=== PATIENT | female | born 1990 | race Hispanic/Latino ===

== ENCOUNTER 2021-12-12 16:26 | Day surgery (SDC) | payer SELFPAY ==
[2021-12-12] MEDS ORDERED: hydrALAZINE 20 MG/ML VIAL SLOW IVP PRN ×2 (16:33)
[2021-12-12 17:08] VITALS: BMI 30.3
[2021-12-12 17:14] LABS: Hemoglobin 10.4 g/dL (12.0-15.5); Mean Corpuscular HGB CONC 32.9 g/dL (32.0-36.0); Mean Corpuscular Hemoglobin 29.7 pg (27.0-33.0); Mean Corpuscular Volume 90.3 fl (81.6-98.3); Mean Platelet Volume 10.1 fl (7.4-10.4); Platelet Count 334 10x3/uL (150-450); RBC Distribution Width 13.1 % (11.5-14.5); White Blood Cell (WBC) Count 15.1 10x3/uL (3.5-10.5)
[2021-12-12 17:50] LABS: HIV (1/2) Antibody/Antigen Non-Reactive (NonReactive); HIV 1/2 INDEX 0.07 S/CO (<1.00); Hep B Surf Ag Non-Reactive S/CO (NonReactive); Syphilis Antibody Nonreactive (Nonreactive); Syphilis Antibody Index 0.03 S/CO (<1.00 Non-Reactive)
[2021-12-12 18:15] LABS: HBSAg Index 0.19 S/CO (0-0.99)
== END 2021-12-12 20:05 | disposition home or self-care (01) ==
LOC: CSHLD/OP 16:26
PROVIDERS: ATTEND Obstetrics & Gynecology
DX: O32.1XX2 Maternal care for breech presentation, fetus 2 (principal); O30.042 Twin pregnancy, dichorionic/diamniotic, second trimester; O09.32 Supervision of pregnancy with insufficient antenatal care, second trimester; O34.219 Maternal care for unspecified type scar from previous cesarean delivery; Z3A.26 26 weeks gestation of pregnancy
CPT/HCPCS: 76810; 85027; 86762; 86780; 86850; 86900; 86901; 87340; 87389; 99284

== ENCOUNTER 2022-02-13 10:55 | Day surgery (SDC) | payer SELFPAY | END 2022-02-13 19:10 | disposition home or self-care (01) | LOC: CSHLD/OP 10:55 | PROVIDERS: ATTEND Family Medicine | DX: O36.8130 Decreased fetal movements, third trimester, not applicable or unspecified (principal); O30.003 Twin pregnancy, unspecified number of placenta and unspecified number of amniotic sacs, third trimester; O09.33 Supervision of pregnancy with insufficient antenatal care, third trimester; Z3A.36 36 weeks gestation of pregnancy | CPT/HCPCS: 59025; 76810; 76815; 76819; 99282 ==

== ENCOUNTER 2022-02-17 09:24 | Day surgery (SDC) | payer OTHER | END 2022-02-17 13:25 | disposition home or self-care (01) | LOC: CSHLD/OP 09:24 | PROVIDERS: ATTEND Family Medicine | DX: O30.043 Twin pregnancy, dichorionic/diamniotic, third trimester (principal); O31.8X30 Other complications specific to multiple gestation, third trimester, not applicable or unspecified; Z3A.36 36 weeks gestation of pregnancy | CPT/HCPCS: 76815; 76819; 99282 ==

== ENCOUNTER 2022-02-18 05:26 | Inpatient (IN) | payer MEDICAID, OTHER ==
[2022-02-17 09:33] LABS: Hemoglobin 9.1 g/dL (12.0-15.5); Mean Corpuscular HGB CONC 30.6 g/dL (32.0-36.0); Mean Corpuscular Hemoglobin 24.5 pg (27.0-33.0); Mean Corpuscular Volume 79.8 fl (81.6-98.3); Mean Platelet Volume 12.1 fl (7.4-10.4); Platelet Count 206 10x3/uL (150-450); RBC Distribution Width 15.6 % (11.5-14.5); Red Blood Cell (RBC) Count 3.72 10x6/uL (3.90-5.03); White Blood Cell (WBC) Count 7.8 10x3/uL (3.5-10.5)
[2022-02-17 09:59] LABS: Hep B Surf Ag Non-Reactive S/CO (NonReactive); Syphilis Antibody Nonreactive (Nonreactive); Syphilis Antibody Index 0.03 S/CO (<1.00 Non-Reactive)
[2022-02-17 10:13] LABS: SARS-CoV-2 NAA Rapid Test DETECTED (NotDetected)
[2022-02-17 10:16] LABS: HBSAg Index 0.22 S/CO (0-0.99)
[2022-02-18] MEDS ORDERED: Ondansetron PF 4 MG/2 ML Vial IVP PRN ×3 (06:25→17:44)
[2022-02-18] MEDS ORDERED: Promethazine HCl 25 MG/ML VIAL IM PRN ×3 (06:25→17:44)
[2022-02-18] MEDS ORDERED: Bicitra 30 ML UDCUP PO PRN (06:25)
[2022-02-18] MEDS ORDERED: hydrALAZINE 20 MG/ML VIAL SLOW IVP PRN ×2 (06:25→17:44)
[2022-02-18] MEDS ORDERED: CEFAZOLIN 2 GM in Sodium Chloride 0.9% 100 ML IVPB SCH (06:25)
[2022-02-18] MEDS ORDERED: Famotidine/PF 20 mg/2ml Vial SLOW IVP PRN (06:25)
[2022-02-18 06:27] VITALS: BMI 29.2
[2022-02-18] MEDS: Lactated Ringer's 1,000 ML IV SCH ×2 (06:30→19:19)
[2022-02-18] MEDS ORDERED: PHENYLEPHRINE-NS 100 MCG/ML 10 ML SYRINGE ONE (07:10)
[2022-02-18] MEDS ORDERED: Phenylephrine 40 MG/NS 250 ML 250 ML ONE (07:10)
[2022-02-18] MEDS ORDERED: Oxytocin 10 UNITS/ML VIAL ONE ×2 (07:10→08:42)
[2022-02-18] MEDS ORDERED: Morphine PF 10 MG/10 ML VIAL ONE (07:10)
[2022-02-18] MEDS ORDERED: Methylergonovine 0.2 MG/ML VIAL ONE (08:09)
[2022-02-18] MEDS ORDERED: Carboprost 250 MCG/ML AMP ONE (08:14)
[2022-02-18] MEDS ORDERED: Albumin 5% 250 ML ONE (08:15)
[2022-02-18] MEDS ORDERED: Misoprostol 200 MCG TAB ONE (08:15)
[2022-02-18] MEDS: Carboprost 250 MCG/ML AMP ONE ×2 (08:18→10:01)
[2022-02-18] MEDS ORDERED: Meperidine HCl/PF 25 MG/ML VIAL ONE (08:19)
[2022-02-18] MEDS ORDERED: Midazolam HCl 2 mg/2 ml Vial ONE (08:22)
[2022-02-18] MEDS ORDERED: Ketorolac Tromethamine 30 MG/ML VIAL ONE (08:39)
[2022-02-18] MEDS ORDERED: diphenhydrAMINE 50 MG/ML VIAL IVP PRN (08:56)
[2022-02-18] MEDS ORDERED: L&D-Morphine 4 MG/ML VIAL SLOW IVP PRN (08:56)
[2022-02-18] MEDS ORDERED: Naloxone HCl 0.4 mg/ml Vial IVP PRN ×2 (08:56)
[2022-02-18] MEDS ORDERED: Moisturizing Cream (Eucerin) 113 GM JAR TOP PRN (08:56)
[2022-02-18] MEDS ORDERED: Naloxone HCl 0.4 mg/ml Vial IV PRN (08:56)
[2022-02-18] MEDS ORDERED: Ondansetron HCl/PF 4 MG/2 ML Vial IVP PRN (08:56)
[2022-02-18] MEDS ORDERED: Meperidine HCl/PF 25 MG/ML VIAL SLOW IVP PRN (08:56)
[2022-02-18] MEDS ORDERED: Promethazine HCl 25 MG SUPP PR PRN (08:56)
[2022-02-18] MEDS ORDERED: Ketorolac Tromethamine 30 MG/ML VIAL IVP PRN (08:56)
[2022-02-18] MEDS ORDERED: Fentanyl 100 MCG/2 ML VIAL SLOW IVP PRN (08:56)
[2022-02-18] MEDS ORDERED: Diphenoxylate HCl/Atropine Tablet PO PRN (08:57)
[2022-02-18] MEDS ORDERED: Communication Order-Pharmacy FS SCH (09:00)
[2022-02-18] MEDS ORDERED: Ketorolac Tromethamine 30 MG/ML VIAL IVP SCH (09:00)
[2022-02-18] MEDS ORDERED: Magnesium Sulfate 20 gm/500 ml 20 GM/500 ML BAG ONE (10:24)
[2022-02-18] MEDS ORDERED: diphenhydrAMINE 25 MG CAP PO PRN (17:44)
[2022-02-18] MEDS ORDERED: Simethicone Chewable 80 MG TAB PO PRN (17:44)
[2022-02-18] MEDS ORDERED: Bisacodyl 10 MG SUPP PR PRN (17:44)
[2022-02-18] MEDS ORDERED: Prenatal Vitamin 1 TAB PO SCH (18:00)
[2022-02-18] MEDS ORDERED: Ferrous Sulfate 325 MG TAB PO SCH (18:00)
[2022-02-18] MEDS ORDERED: Docusate 100 MG CAP PO SCH (18:00)
[2022-02-18] MEDS: Magnesium Sulfate 20 gm/500 ml 20 GM/500 ML BAG IVPB SCH (18:30)
[2022-02-18] MEDS: Ketorolac Tromethamine 30 MG/ML VIAL IVP SCH (19:19)
[2022-02-19] MEDS: Ketorolac Tromethamine 30 MG/ML VIAL IVP SCH ×2 (03:25→23:04)
[2022-02-19 05:12] LABS: Mean Corpuscular HGB CONC 32.1 g/dL (32.0-36.0); Mean Corpuscular Hemoglobin 25.1 pg (27.0-33.0); Mean Corpuscular Volume 78.2 fl (81.6-98.3); Mean Platelet Volume 11.9 fl (7.4-10.4); Platelet Count 156 10x3/uL (150-450); RBC Distribution Width 15.9 % (11.5-14.5); Red Blood Cell (RBC) Count 2.39 10x6/uL (3.90-5.03); White Blood Cell (WBC) Count 8.3 10x3/uL (3.5-10.5)
[2022-02-19] MEDS: Magnesium Sulfate 20 gm/500 ml 20 GM/500 ML BAG IVPB SCH (06:22)
[2022-02-19] MEDS ORDERED: hydrALAZINE 20 MG/ML VIAL SLOW IVP PRN (08:03)
[2022-02-19] MEDS: HYDROcodone/Acetaminophen 5/325 mg Tablet PO PRN ×3 (09:57→21:57)
[2022-02-19] MEDS: Prenatal Vitamin 1 TAB PO SCH (12:55)
[2022-02-19] MEDS: Ibuprofen 800 MG TAB PO SCH ×2 (12:56→21:56)
[2022-02-19] MEDS: Ferrous Sulfate 325 MG TAB PO SCH (12:56)
[2022-02-19] MEDS: Losartan Potassium 50 MG TAB PO SCH (12:56)
[2022-02-19] MEDS: cloNIDine 0.1 MG TAB PO PRN (15:51)
[2022-02-19] MEDS ORDERED: Boostrix 0.5 ML (Tdap) VIAL IM ONE (17:44)
[2022-02-20] MEDS: Ferrous Sulfate 325 MG TAB PO SCH ×3 (00:25→21:27)
[2022-02-20] MEDS: cloNIDine 0.1 MG TAB PO PRN (04:38)
[2022-02-20 06:07] LABS: Hemoglobin 8.8 g/dL (12.0-15.5); Mean Corpuscular HGB CONC 31.9 g/dL (32.0-36.0); Mean Corpuscular Hemoglobin 26.3 pg (27.0-33.0); Mean Corpuscular Volume 82.6 fl (81.6-98.3); Mean Platelet Volume 11.7 fl (7.4-10.4); Platelet Count 235 10x3/uL (150-450); RBC Distribution Width 15.9 % (11.5-14.5); Red Blood Cell (RBC) Count 3.34 10x6/uL (3.90-5.03); White Blood Cell (WBC) Count 10.7 10x3/uL (3.5-10.5)
[2022-02-20] MEDS: Ibuprofen 800 MG TAB PO SCH ×3 (06:14→21:26)
[2022-02-20] MEDS: Prenatal Vitamin 1 TAB PO SCH (08:41)
[2022-02-20] MEDS: Losartan Potassium 50 MG TAB PO SCH (08:41)
[2022-02-20] MEDS: HYDROcodone/Acetaminophen 5/325 mg Tablet PO PRN ×2 (14:56→21:27)
[2022-02-21] MEDS: Ibuprofen 800 MG TAB PO SCH ×3 (05:47→20:59)
[2022-02-21] MEDS: Ferrous Sulfate 325 MG TAB PO SCH ×2 (08:54→20:59)
[2022-02-21] MEDS: Losartan Potassium 50 MG TAB PO SCH (08:54)
[2022-02-21] MEDS: Prenatal Vitamin 1 TAB PO SCH (08:54)
[2022-02-21] MEDS: HYDROcodone/Acetaminophen 5/325 mg Tablet PO PRN (15:25)
[2022-02-21] MEDS: cloNIDine 0.1 MG TAB PO PRN ×2 (16:38→20:59)
[2022-02-21] MEDS ORDERED: Losartan Potassium 50 MG TAB PO SCH (18:00)
[2022-02-22] MEDS: Ibuprofen 800 MG TAB PO SCH ×2 (05:14→13:37)
[2022-02-22] MEDS: Prenatal Vitamin 1 TAB PO SCH (08:15)
[2022-02-22] MEDS: Ferrous Sulfate 325 MG TAB PO SCH (08:16)
[2022-02-22] MEDS ORDERED: Losartan Potassium 50 MG TAB PO SCH (09:00)
[2022-02-22] MEDS ORDERED: Docusate 100 MG CAP PO SCH (09:00)
[2022-02-22 15:30] VITALS: BP 139/89; TEMP 98.5
== END 2022-02-22 17:00 | disposition home or self-care (01) | DRG 786 ==
LOC: CSHLD 05:26 → MERGE 07:30 → CSHLD 13:52 → CSHANTE 02-19 11:15
PROVIDERS: ADMIT Family Medicine; ATTEND Family Medicine
PROC: 10D00Z1 Extraction of Products of Conception, Low, Open Approach (ICD-10-PCS; principal; 2022-02-18)
PROC: 30233N1 Transfusion of Nonautologous Red Blood Cells into Peripheral Vein, Percutaneous Approach (ICD-10-PCS; 2022-02-18)
PROC: 8E0ZXY6 Isolation (ICD-10-PCS; 2022-02-18)
DX: O34.211 Maternal care for low transverse scar from previous cesarean delivery (principal); U07.1 COVID-19; D62 Acute posthemorrhagic anemia; O98.52 Other viral diseases complicating childbirth; Z3A.37 37 weeks gestation of pregnancy; O36.5931 Maternal care for other known or suspected poor fetal growth, third trimester, fetus 1; O30.043 Twin pregnancy, dichorionic/diamniotic, third trimester; Z37.2 Twins, both liveborn; O24.420 Gestational diabetes mellitus in childbirth, diet controlled; O90.81 Anemia of the puerperium
CPT/HCPCS: 36415; 36430; 51702; 85027; 86780; 86850; 86900; 86901; 87340; 88307; J0360; J0690; J1885; J2175; J2210; J2250; J2274; J2590; J3475; J3490; J7120; P9016; P9045; S0028; U0002